=== PATIENT | female | born 2000 | race Caucasian/White ===

== ENCOUNTER 2019-08-24 13:31 | Emergency (ER) | payer SELFPAY ==
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
== END 2019-08-24 15:20 | disposition home or self-care (01) ==
LOC: MW.ED 13:31
DX: S40.022A Contusion of left upper arm, initial encounter (principal); S40.021A Contusion of right upper arm, initial encounter; S00.03XA Contusion of scalp, initial encounter; S70.01XA Contusion of right hip, initial encounter; F17.210 Nicotine dependence, cigarettes, uncomplicated; F90.9 Attention-deficit hyperactivity disorder, unspecified type; Z79.899 Other long term (current) drug therapy; Y04.0XXA Assault by unarmed brawl or fight, initial encounter
CPT/HCPCS: 99283

== ENCOUNTER 2020-05-08 14:38 | Emergency (ER) | payer BC ==
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
== END 2020-05-08 16:19 | disposition home or self-care (01) ==
LOC: MW.ED 14:38
DX: S00.83XA Contusion of other part of head, initial encounter (principal); S00.33XA Contusion of nose, initial encounter; H11.31 Conjunctival hemorrhage, right eye; Z79.899 Other long term (current) drug therapy; Y04.0XXA Assault by unarmed brawl or fight, initial encounter
CPT/HCPCS: 70486; 70486-26; 99283-25